=== PATIENT | female | born 1950 | race Caucasian/White ===

== ENCOUNTER 2019-07-04 00:56 | Inpatient (IN) | payer MEDICARE, MEDICAID ==
[~2019-07-04] VITALS: Ht 147.3 cm; Wt 79.6 kg
--- NOTE | ~2019-07-04 | HEMODYNAMI ---
PATIENT:VALERIE CRAWFORD MEDICAL RECORD: [id number] : [birth year] LOCATION:[facility] D.2111 ADMISSION DATE: 07/04/19 Generatedon:07/06/201915:54 Patient name: VALERIE CRAWFORD Patient #: [id number] SSN: D OB: 1950 Date of study: 07/06/2019 Page: Of Hemodynamic Procedure Report Patient Data Patient Demographics Procedure consent was obtained First Name: VALERIE Gender: Female Last Name: YVETTE : 1950 Patient #: [id number] Age: 68 year(s) Race: Unknown Additional ID: [id number] Contact details Address: [address] [place] [address] State: [place] City: [place] Zip code: [address] Past Medical History Allergies: No known allergies Admission Admission Data Admission Date: 07/04/2019 Admission Time: 17:00 Arrival Date: 07/05/2019 Arrival Time: 0:00 Admit Source: Other Insurance Payor: Medicare Room #: D.2111 [facility] #: [id number] Height (in.): 58 BSA: 1.79 (m2) Height (cm.): 147.32 BMI: 40.36 (kg/m2) Weight (lbs.): 193.1 Weight (kg.): 87.59 Lab Results Lab Result Date: 07/05/2019 Lab Result Time: 0:00 Biochemistry Name Units Result Min Max BUN mg/dl 21 --(----)-* 7 18 CK-MB ng/ml 3 --(---*)-- 0 3.6 Creatinine mg/dl 0.6 --(*---)-- 0.6 1.3 eGFR ml/min 90 --(*---)-- 90 120 NONAFRICAN Troponin l ng/ml 0.445 --(----)-* 0 0.06 CBC Name Units Result Min Max Hematocrit % 38 *-(----)-- 42 54 Hemoglobin g/dl 13.1 -*(----)-- 13.5 17.5 Procedure Procedure Types Cath Procedure Peripheral Cath Diagnostic Procedure PICC PICC Line Placement Procedure Description Procedure Date Procedure Date: 07/06/2019 Procedure Start Time: 15:34 Procedure End Time: 15:53 Procedure Staff Name Function Yash Kaur MD Performing Physician DARRELL ONEAL RT Imaging Aide Jean Hanks RT Scrub Suzanne Hathaway RN Nurse Procedure Data Cath Procedure Fluoroscopy Diagnostic fluoroscopy Total fluoroscopy Time: 2.5 time: 2.5 min min Diagnostic fluoroscopy Total fluoroscopy dose: 16 dose: 16 mGy mGy Hemodynamics Rest BSA: 1.79 (m2) O2 Consumption: Estimated: 243.44 (ml/min) O2 Consumption indexed : Estimated:136 (ml/min/m) Pre Cath Intra NCS Post Cath Procedure Log Time Note 15:04:27 Patient Height : 58 inches 15:04:27 Patient Weight : 193.1 lbs 15:05:09 Jean Hanks RT (R) (CV) sent for patient. Start room use. 15:05:11 Use device set IR Diagnostic 15:05:13 Bag Decanter (2002S) opened to sterile field. 15:05:13 Sterile Angiographic Pack opened to sterile field. 15:05:14 Tegaderm 4 x 4 (1626W) opened to sterile field. 15:14:11 Time tracking: Regular hours (M-F 7:00 - 5:00) 15:14:32 Patient received from Med II to IR Alert and oriented. Tansferred to table in Supine position. 15:18:37 Signed procedure consent form obtained from patient. 15:18:40 Correct patient and procedure confirmed by team. 15:18:44 - 15:18:51 H&P Date Dictated: 07/06/2019 Within 30 days and on chart.. 15:18:53 Pre-procedure instructions explained to patient. 15:18:54 Pre-op teaching completed and patient verbalized understanding. 15:18:56 Family in patients room. 15:19:05 Patient allergic to No known allergies 15:28:23 - 15:33:03 Physician arrived 15:33:04 --------ALL STOP TIME OUT------ 15:33:05 Final Timeout: patient, procedure, and site verified with staff and physician. All members of the team are in agreement. 15:34:44 Procedure started. 15:34:45 Full Disclosure recording started 15:40:40 GLIDE CATHETER 5FR ANGLED 65cm (CG507) opened to sterile field. 15:47:03 PowerPICC 5Fr double lumen catheter opened to sterile field. 15:47:52 Procedure ended.(Physican Out) 15:48:34 Fluoroscopy time 02.50 minutes. 15:49:32 Fluoroscopy dose: 16 mGy 15:49:32 Flurop Dose total: 16 15:49:40 Insertion/operative site no bleeding no hematoma. 15:52:27 Post procedure instruction explained to patient.Patient verbalizes understanding. 15:52:32 Procedure and supply charges have been captured, reviewed, submitted an d are correct. 15:53:54 Patient transfered to [facility] with Bed. 15:53:57 Procedure ended. 15:53:57 Full Disclosure recording stopped Device Usage Item Name Manufacture Quantity Catalog Hospital Part Current Minimal Lot# / Number Charge Number Stock Stock Serial# Code Bag Decanter Microtek 1 [id number] [id number] 5 () Medical Inc. Sterile Cardinal 1 [id number] 007770 5 Angiographic Health Pack Tegaderm 4 x 3M 1 1626W 774363 013716 588458 5 4 (1626W) GLIDE Terumo 1 CG507 408692 724060 5 CATHETER 5FR ANGLED 65cm (CG507) PowerPICC Bard 1 [id number] 328497 661724 091271 5 5Fr double lumen catheter Signature Audit Oneco Stage Time Signature Unsigned Intra-Procedure 07/06/2019 DARRELL ONEAL RT 3:54:17 PM (R) [facility] [address] [place] [address]
--- NOTE | ~2019-07-04 | EC ---
PATIENT:VALERIE CRAWFORD DATE OF SERVICE: 07/04/19 SEX: F MEDICAL RECORD: [id number] DATE OF : [birth year] LOCATION:[facility] D230 AGE OF PATIENT: 68 ADMISSION DATE: 07/04/19 REFERRING PHYSICIAN: INTERPRETING PHYSICIAN: MANUEL ESTRADA MD ECHOCARDIOGRAM REPORT ECHO CHARGES 5 ECHO LIMITED Date: 07/20/19 CLINICAL DIAGNOSIS: REASSESS EF ECHOCARDIOGRAPHIC MEASUREMENTS (adult normal given) AC root (d.<3.7cm) 3.0 cm LV Septum d (<1.2 cm> 0.7 cm Valve Excursion 1.3 cm LV Septum (systole) 0.9 cm Left Atria (s.<4.0cm> 4.6 cm LVPW d(<1.2cm) 1.4 cm RV (d.<2.3cm) 2.2 cm LVPW (sytole) 1.6 cm LV diastole(<5.6CM) 5.6 cm MV E-F(>70mm/sec) cm LV systole 4.6 cm LVOT Diameter 1.8 cm MV exc.(>10mm) cm Est.ejection fraction (50-75%) % DOPPLER: LVIT cm/sec A 67 cm/sec E cm/sec LA cm/sec RVSP 13 mmHg LVOT 150 cm/sec AOP1/2T m/s Asc. Ao 153 cm/sec RVOT 96 cm/sec RA cm/sec PA 92 cm/sec AV Gradient Peak 9.3 mmHg AV Mean 5.4 mmHg AV Area 2.6 cm MV Gradient Peak 10.2 mmHg MV Mean 4.7 mmHg MV Area cm COMMENTS: Nib Assembler: 2 AYAN GARCIA Project Intern: 1 Dr. Estrada TAPE# PACS Pericardial Effusion N DATE OF SERVICE: LIMITED ECHOCARDIOGRAM FOR EJECTION FRACTION Left ventricular chamber size is within normal limits. Left ventricular systolic function is normal at 55%. TRANSINT:[id number] Voice Confirmation ID: [id number] DOCUMENT ID: [id number] ECHOCARDIOGRAM REPORT [id number] YVETTEMANUEL FIERRO MD CC: [id number] DICTATION DATE: 07/21/19 0956 GAS ENGINE OPERATOR GENERATORS: 07/21/19 1048 ADM IN [place] [address] [place] [address]
--- NOTE | ~2019-07-04 | HEMODYNAMI ---
PATIENT:VALERIE CRAWFORD MEDICAL RECORD: [id number] : [birth year] LOCATION:[facility] D.2111 [facility]# [id number] ADMISSION DATE: 07/04/19 Generatedon:07/05/201914:01 Patient name: VALERIE CRAWFORD Patient #: [id number] SSN: D OB: 1950 Date of study: 07/05/2019 Page: Of Hemodynamic Procedure Report Patient Data Patient Demographics Procedure consent was obtained First Name: VALERIE Gender: Female Last Name: YVETTE : 1950 Patient #: [id number] Age: 68 year(s) Race: Unknown Additional ID: [id number] Contact details Address: [address] [place] [address] State: [place] City: [place] Zip code: [address] Past Medical History Allergies: No known allergies Admission Admission Data Admission Date: 07/04/2019 Admission Time: 17:00 Arrival Date: 07/05/2019 Arrival Time: 0:00 Admit Source: Other Insurance Payor: Medicare Room #: D.2111 [facility] #: [id number] Height (in.): 58 BSA: 1.79 (m2) Height (cm.): 147.32 BMI: 40.36 (kg/m2) Weight (lbs.): 193.1 Weight (kg.): 87.59 Lab Results Lab Result Date: 07/05/2019 Lab Result Time: 0:00 Biochemistry Name Units Result Min Max BUN mg/dl 21 --(----)-* 7 18 CK-MB ng/ml 3 --(---*)-- 0 3.6 Creatinine mg/dl 0.6 --(*---)-- 0.6 1.3 eGFR ml/min 90 --(*---)-- 90 120 NONAFRICAN Troponin l ng/ml 0.445 --(----)-* 0 0.06 CBC Name Units Result Min Max Hematocrit % 38 *-(----)-- 42 54 Hemoglobin g/dl 13.1 -*(----)-- 13.5 17.5 Procedure Procedure Types Cath Procedure Diagnostic Procedure [facility] w/Coronaries Sedation Charges Moderate Sedation up to 30 minutes Procedure Description Procedure Date Procedure Date: 07/05/2019 Procedure Start Time: 13:35 Procedure End Time: 13:59 Procedure Staff Name Function Andre Yao MD Performing Physician Peggy Chavez RT Monitor Apryl Britton RT Scrub Handy Cameron RN Nurse Procedure Data Cath Procedure Fluoroscopy Diagnostic fluoroscopy Total fluoroscopy Time: 3.4 time: 3.4 min min Diagnostic fluoroscopy Total fluoroscopy dose: 523 dose: 523 mGy mGy Contrast Material Contrast Material Type Amount (ml) Isovue 370 53 Entry Location Entry Primary Successful Side Size Upsize Upsize Entry Closure Succes sful Closure Location (Fr) 1 (Fr) 2 (Fr) Remarks Device Remarks Femoral Right 5 Fr Exoseal artery Estimated blood loss: 5 ml Diagnostic catheters Device Type Used For End Catheter Placement MULTIPACK JL 4.0 5Fr Procedure catheter MULTIPACK 3DRC 5Fr Procedure catheter MULTIPACK Pigtail 5 Fr Procedure catheter Procedure Complications No complications Procedure Medications Medication Administration Route Dosage 0.9% NaCl I.V. 100 ml/hr Oxygen 11 l/min Heparin Flush Bag added to field 2 bags (1000units/500ml NS) Lidocaine 2% added to field 20 Versed I.V. 1 mg Fentanyl I.V. 50 mcg Fentanyl I.V. 50 mcg Versed I.V. 1 mg Hemodynamics Rest BSA: 1.79 (m2) HGB: 13.1 (g/dl) O2 Consumption: Estimated: 193.44 (ml/min) O2 Co nsumption indexed: Estimated:108.07 (ml/min/m) Heart Rate: 111 (bpm) Gradients Valve Time Site Site Mean SEP/DFP Peak To Heart Use 1 2 (mmHg) (sec/min) Peak Rate (mmHg) (bpm) Aortic 13:56 LV AO 108 Snapshots Pre Cath Intra NCS Post Cath Vital Signs Time Heart Resp SPO2 etCO2 NIBP (mmHg) Rhythm Pain Sedation Rate (ipm) (%) (mmHg) Status Level (bpm) 13:28:30 111 25 100 0 126/70(87) NSR 0 (11) 10(A) , No pain 13:32:35 111 26 100 0 120/75(100) NSR 0 (11) 10(A) , No pain 13:36:43 108 21 100 0 116/74(92) NSR 0 (11) 10(A) , No pain 13:40:49 108 25 100 0 121/70(99) NSR 0 (11) 10(A) , No pain 13:44:57 106 26 99 0 131/76(122) NSR 0 (11) 10(A) , No pain 13:49:09 108 26 99 0 141/75(108) NSR 0 (11) 10(A) , No pain 13:53:23 111 27 99 0 127/77(99) NSR 0 (11) 10(A) , No pain 13:57:27 104 27 99 0 111/64(92) NSR 0 (11) 10(A) , No pain Medications Time Medication Route Dose Verified Delivered Reason Notes Effe ctiveness by by 13:30:31 0.9% NaCl I.V. 100 Handy Handy Per ml/hr Nisha Cameron physician RN RN 13:31:03 Oxygen High 11 Handy Handy for low 02 flow l/min Lorigan Yolieigan sats NC RN RN 13:31:14 Heparin Flush added 2 Handy Handy used for Bag to bags Lorigan Lorigan procedure (1000units/500ml [facility] RN RN NS) 13:31:28 Lidocaine 2% added 20ml Handy Handy for local to vial Lorigan Lorigan anesthetic field RN RN 13:31:42 Versed I.V. 1 mg Handy Handy for Lorigan Lorigan sedation RN RN 13:31:49 Fentanyl I.V. 50 Handy Handy for mcg Lorigan Lorigan sedation RN RN 13:38:52 Fentanyl I.V. 50 Handy Handy for mcg Lorigan Lorigan sedation RN RN 13:38:59 Versed I.V. 1 mg Handy Handy for Lorigan Lorigan sedation RN soil sampler Log Time Note 12:51:18 Handy Cameron RN sent for patient. Start room use. 12:57:55 Diagnostic Cath Status : Urgent 12:58:11 Admit Source: Other 12:58:16 Procedure Status Urgent Heart Cath (IP). 12:58:26 Time tracking: Regular hours (M-F 7:00 - 5:00) 12:58:31 Plan of Care:Hemodynamics will remain stable., Cardiac rhythm will remain stable., Comfort level will be maintained., Respiratory function will remain adequate., Patient/ family verbilizes understanding of procedure., Procedure tolerated without complication., Recovers from procedure without complications.. 12:58:51 H&P Date Dictated: 07/04/2019 Within 30 days and on chart.. 12:58:52 Pre-procedure instructions explained to patient. 12:58:52 Pre-op teaching completed and patient verbalized understanding. 12:58:55 Patient NPO since Midnight. 12:59:52 Lab Result : BUN 21 mg/dl 12:59:52 Lab Result : Creatinine 0.6 mg/dl 12:59:52 Lab Result : CK-MB 3 ng/ml 12:59:52 Lab Result : eGFR NONAFRICAN 90 ml/min 12:59:52 Lab Result : Troponin l 0.445 ng/ml 12:59:52 Lab Result : Hemoglobin 13.1 g/dl 12:59:52 Lab Result : Hematocrit 38 % 12:59:56 Lab results completed and on chart. 12:59:59 Stress Test: no; N/A ? 13:00:19 Arrival Date: 07/05/2019 12:00:00 AM 13:00:24 Insurance Payor : Medicare 13:00:40 Patient Height : 58 inches 13:03:47 Patient Weight : 193.1 lbs 13:05:45 Patient received from Med II to CCL 2 Alert and oriented. Tansferred to table in Supine position. 13:05:51 Signed procedure consent form obtained from patient. 13:05:52 Warm blankets applied, and shae hugger turned on for patient comfort. 13:05:52 Correct patient and procedure confirmed by team. 13:05:53 ECG and BP/O2 sat monitors applied to patient. 13:06:12 Risk of Mortality: 1.0 13:06:16 Risk of blood transfusion: 4.9 13:06:19 Risk of HALIMA: 4.0 13:06:21 Alarms reviewed by R. N. 13:06:22 Sharps counted by scrub and verified by R.N. 13:10:28 Patient allergic to No known allergies 13:10:43 Family unavailable. 13:10:46 Is the patient allergic to Iodine/contrast media? No. 13:10:47 Was the patient premedicated? Yes 13:10:49 Is patient on blood thinner?No 13:10:51 Patient diabetic? No. 13:10:53 If diabetic: On Metformin? N/A 13:10:57 Patient not . Patient is over age 55. 13:11:00 ----Pre-sedation anethsthesia assessment.---- 13:11:03 Previous problem with sedation/anesthesia? No ? 13:11:09 Snore? Yes 13:11:10 Sleep apnea? Yes 13:11:12 Deviated septum? No 13:11:13 Opens mouth fully? Yes 13:11:14 Sticks out tongue? Yes 13:11:17 Airway obstruction? Yes COPD 13:11:22 Dentures? Yes IN TIGHT 13:27:31 Vital chart was started 13:27:50 Baseline sample Acquired. 13:27:53 Rhythm: sinus rhythm 13:27:55 Full Disclosure recording started 13:28:03 Patient pain scale 0/10 ?. 13:28:10 IV patent on arrival in left antecubital with 0.9% NaCl at [facility]. 13:28:13 Pre procedure: right dorsailis pedis pulse 2+ Normal; easily identifiable; not easily obliterated 13:28:17 Right groin area was prepped with chlora-prep and draped in sterile fashion 13:28:23 Use device set Femoral Dx 13:28:25 ACIST Syringe (21189) opened to sterile field. 13:28:26 Bag Decanter (2002) opened to sterile field. 13:28:26 Medline Cath Pack ([id number]) opened to sterile field. 13:28:27 ACIST Hand Control (67072) opened to sterile field. 13:28:28 ACIST Manifold (76646) opened to sterile field. 13:28:29 DIAGNOSTIC Multipack 5Fr catheter set (NC0970) opened to sterile field. 13:28:30 SHEATH 5FR [place] (IKB706) opened to sterile field. 13:28:31 ERMELINDAALD Guide Wire (548-450) opened to sterile field. 13:30:31 0.9% NaCl 100 ml/hr I.V. was administered by Handy Cameron RN; Per physician; Verbal order read back and verified. 13:30:55 --------ALL STOP TIME OUT------ 13:30:56 Final Timeout: patient, procedure, and site verified with staff and physician. All members of the team are in agreement. 13:30:57 Right groin site verified by team. 13:31:01 Fire Safety Assessment: A--An alcohol-based skin anteseptic being used preoperatively., C--Open oxygen or nitrous oxide is being used., D--An ESU, laser, or fiber-optic light is being used. 13:31:03 Oxygen 11 l/min High flow NC was administered by Handy Cameron RN; for low 02 sats; Verbal order read back and verified. 13:31:04 Physical assessment completed. ASA score P 2 - A patient with mild systemic disease as per Andre Yao MD. 13:31:07 1) 90+ Normal kidney functon but urine findings or structural abnormalities or genetic trait point to kidney disease. 13:31:10 Maximum allowable contrast dose (3.7 X eGFR X 0.75)250 ml. 13:31:14 Heparin Flush Bag (1000units/500ml NS) 2 bags added to field was administered by Handy Cameron RN; used for procedure; Verbal order read back and verified. 13:31:15 Sedation plan: IV Moderate Sedation Medication:Versed, Fentanyl 13:31:28 Lidocaine 2% 20ml vial added to field was administered by Handy Cameron RN; for local anesthetic; Verbal order read back and verified. 13:31:42 Versed 1 mg I.V. was administered by Handy Cameron RN; for sedation; Verbal order read back and verified. 13:31:49 Fentanyl 50 mcg I.V. was administered by Handy Cameron RN; for sedation; Verbal order read back and verified. 13:34:41 Procedure started. 13:35:31 Local anesthetic to right femoral artery with Lidocaine 2% by Andre Yao MD.INITIAL ACCESS ONLY 13:38:52 Fentanyl 50 mcg I.V. was administered by Handy Cameron RN; for sedation; Verbal order read back and verified. 13:38:59 Versed 1 mg I.V. was administered by Handy Cameron RN; for sedation; Verbal order read back and verified. 13:41:59 A 5 Fr sheath was inserted into the Right Femoral artery 13:42:12 A MULTIPACK JL 4.0 5Fr catheter was advanced over the wire and used for Procedure. 13:42:48 LCA angiography performed. 13:44:52 Catheter exchanged over wire. 13:45:50 A MULTIPACK 3DRC 5Fr catheter was advanced over the wire and used for Procedure. 13:46:48 RCA angiography performed. 13:46:49 ACCDominant side:Co-Dominant 13:46:51 Catheter exchanged over wire. 13:46:56 A MULTIPACK Pigtail 5 Fr catheter was advanced over the wire and used for Procedure. 13:48:13 LV gram done using PAUL 13:48:14 LV hemodynamics recorded. 13:48:17 Injector settings: Ml/sec: 5, Volume: 15, 13:48:22 EF : 60 % 13:56:41 Catheter removed. 13:56:45 EXOSEAL 5Fr (EX500) opened to sterile field. 13:57:07 Sheath removed intact; hemostasis achieved with Exoseal to the Right Femoral artery. 13:57:27 Fluoroscopy time 03.40 minutes. 13:57:30 Fluoroscopy dose: 523 mGy 13:57:30 Flurop Dose total: 523 13:57:35 Dose Area Product 55103 mGy/cm. 13:57:48 Procedure ended.(Physican Out) 13:57:59 Contrast amount:Isovue 370 53ml. 13:58:02 Maximum allowable dose exceeded? No. 13:58:17 Sharps counted by scrub and verified by R.N. 13:58:31 Post-op/insertion site Right Femoral artery dressed using a 4 x 4 and Tegaderm. 13:58:36 Post right femoral artery:stable, soft, clean and dry 13:58:38 Post Procedure Pulses reassessed and unchanged 13:58:41 Post procedure: right dorsailis pedis pulse 2+ Normal; easily identifiable; not easily obliterated. 13:58:44 Post-procedure physical assessment completed. ASA score P 2 - A patient with mild systemic disease as per Andre Yao MD. 13:58:47 Post procedure rhythm: unchanged. 13:58:50 Estimated blood loss: 5 ml 13:58:52 Post procedure instruction explained to patient.Patient verbalizes understanding. 13:58:52 Patient needs reinforcement of post procedure teaching. 13:59:16 Procedure type changed to Cath procedure, Diagnostic procedure, LHC, [facility] w/Coronaries, Sedation Charges, Moderate Sedation up to 30 minutes 13:59:34 Procedure and supply charges have been captured, reviewed, submitted and are correct. 13:59:38 Procedure Complication : No complications 13:59:44 [facility] Findings: mild to moderate CAD (<70%) 13:59:46 Operative report dictated upon procedure completion. 13:59:46 See physician's report for complete and final results. 13:59:48 Report given to [facility]. 13:59:51 Patient transfered to [facility] with Bed. 13:59:54 Procedure ended. 13:59:54 Full Disclosure recording stopped 14:00:12 End room use (Document Last) 14:00:22 End room use (Document Last) 14:00:44 End room use (Document Last) 14:01:07 Vital chart was stopped Device Usage Item Name Manufacture Quantity Catalog Hospital Part Current Minimal L ot# / Number Charge Number Stock Stock Serial# Code ACIST Acist 1 35249 013162 545298 360831 20 Syringe Medical (26640) Systems Inc Bag Microtek 1 2001S 423077 22093 812567 5 Decanter Medical Inc. () Medline Medline 1 [id number] 389405 35697 923677 5 Cath Pack ([id number]) ACIST Hand Acist 1 30340 297553 330471 133579 5 Control Medical (66158) Systems Inc ACIST Acist 1 18193 266530 963265 630082 5 Manifold Medical (01410) Systems Inc DIAGNOSTIC Cardinal 1 RF5900 034599 82335 164910 30 Multipack Health 5Fr catheter set (MH5709) SHEATH 5FR Terumo 1 HLA384 050378 218716 854590 5 [place] (HNP812) EMERALD Cardinal 1 502-455 078535 949032 222673 5 Guide Wire Health (502-021) MULTIPACK Cardinal 1 190884 5 JL 4.0 5Fr Health catheter MULTIPACK Cardinal 1 412552 5 3DRC 5Fr Health catheter MULTIPACK Cardinal 1 311430 5 Pigtail 5 Health Fr catheter EXOSEAL 5Fr Cardinal 1 EX500 699503 533509 707055 10 (EX500) Health Signature Audit [place] Stage Time Signature Unsigned Intra-Procedure 07/05/2019 Pgegy Chavez 2:00:22 PM RT(R) Intra-Procedure 07/05/2019 Handy 2:00:44 PM Lorigan RN Intra-Procedure 07/05/2019 Andre Yao MD 2:01:05 PM Signatures Performing Physician : Signature : Andre Yao MD Date : Time : Monitor : Pgegy Chavez Signature : RT Date : Time : Nurse : Handy Lorigan Signature : RN Date : Time : [address] [place] [address]
[2019-07-04 01:38] LABS: BASOPHILS 0.1 % (0-2); HEMATOCRIT 37.8 % (36.0-48.0); IMMATURE GRANULOCYTES 0.8 % (0-5); LYMPHOCYTES 13.4 % (15-50); MCH 26.4 pg (26.0-34.0); MCHC 29.1 g/dL (31.0-37.0); MCV 90.6 fL (80.0-100.0); MEAN PLATELET VOLUME 10.5 fL (7.4-10.4); MONOCYTES 4.6 % (2-11); NEUTROPHILS 80.1 % (40-80); PLATELET COUNT 215 10x3/uL (130-400); RBC 4.17 10x6/uL (4.00-5.40); RDW 18.4 % (11.5-14.5)
[2019-07-04 01:42] LABS: APTT 22.5 SECONDS (22.8-39.4); INR 0.94 (0.85-1.17); PROTIME 12.5 SECONDS (11.6-15.0)
[2019-07-04 02:04] LABS: ALBUMIN 3.3 g/dL (3.4-5.0); ALKALINE PHOSPHATASE 68 U/L (30-120); ALT (SGPT) 25 U/L (10-68); BILIRUBIN - TOTAL 0.69 mg/dL (0.2-1.3); CALC OSMOLALITY 286 mosm/kg (275-300); CALCIUM 9.6 mg/dL (8.5-10.1); CHLORIDE - SERUM 101 mmol/L (98-107); CKMB 2.4 U/L (0.0-3.6); CREATINE KINASE 83 UL (21-215); CREATININE - SERUM 0.7 mg/dL (0.6-1.3); GLUCOSE 122 mg/dL (74-106); POTASSIUM - SERUM 4.4 mmol/L (3.5-5.1); PRO BNP 265 pg/mL (0-125); PROTEIN - SERUM 6.7 g/dL (6.4-8.2); SODIUM 142 mmol/L (136-145); UREA NITROGEN 20 mg/dL (7-18); eGFR NON AFRICAN AMERICAN 88 mL/min (90-120)
[2019-07-04 02:13] LABS: CARBON DIOXIDE 40.6 mmol/L (21.0-32.0)
[2019-07-04 02:14] LABS: TROPONIN-I 0.133 ng/mL (0.000-0.060)
[2019-07-04 03:26] LABS: CKMB 2.7 U/L (0.0-3.6); CREATINE KINASE 86 UL (21-215)
[2019-07-04 03:32] LABS: TROPONIN-I 0.248 ng/mL (0.000-0.060)
[2019-07-04 03:43] VITALS: BP 145/65
[2019-07-04 04:09] VITALS: BP 145/65; BMI 40.3
[2019-07-04 08:03] VITALS: BP 175/98
[2019-07-04 08:52] LABS: CREATINE KINASE 71 UL (21-215)
[2019-07-04 08:58] LABS: TROPONIN-I 0.445 ng/mL (0.000-0.060)
[2019-07-04 11:31] LABS: BASOPHILS 0.1 % (0-2); EOSINOPHILS 0.8 % (0-7); HEMATOCRIT 38.5 % (36.0-48.0); HEMOGLOBIN 10.8 g/dL (12-16); IMMATURE GRANULOCYTES 0.8 % (0-5); LYMPHOCYTES 11.7 % (15-50); MCH 25.8 pg (26.0-34.0); MCHC 28.1 g/dL (31.0-37.0); MCV 92.1 fL (80.0-100.0); MEAN PLATELET VOLUME 11.3 fL (7.4-10.4); MONOCYTES 4.8 % (2-11); NEUTROPHILS 81.8 % (40-80); PLATELET COUNT 200 10x3/uL (130-400); RBC 4.18 10x6/uL (4.00-5.40); WBC 10.9 10x3/uL (4.8-10.8)
[2019-07-04 11:42] LABS: ALT (SGPT) 32 U/L (10-68); CALC OSMOLALITY 287 mosm/kg (275-300); CALCIUM 9.6 mg/dL (8.5-10.1); CARBON DIOXIDE 36.5 mmol/L (21.0-32.0); CHLORIDE - SERUM 100 mmol/L (98-107); CHOLESTEROL, TOTAL 193 mg/dL (0-200); CREATININE - SERUM 0.6 mg/dL (0.6-1.3); GLUCOSE 129 mg/dL (74-106); HDL CHOLESTEROL 96 mg/dL (32-96); LDL CHOLESTEROL 62 mg/dL (0-100); LDL-HDL RATIO 0.6 ratio (1.5-3.5); POTASSIUM - SERUM 4.6 mmol/L (3.5-5.1); SODIUM 142 mmol/L (136-145); TRIGLYCERIDE 175 mg/dL (30-200); UREA NITROGEN 21 mg/dL (7-18); eGFR NON AFRICAN AMERICAN > 90 mL/min (90-120)
[2019-07-04 12:22] VITALS: BP 152/81
[2019-07-04 15:55] VITALS: BP 129/67
[2019-07-04 16:21] LABS: CKMB 3.1 U/L (0.0-3.6); CREATINE KINASE 63 UL (21-215)
[2019-07-04 20:30] VITALS: BP 144/72
[2019-07-05 00:30] VITALS: BP 154/87
[2019-07-05 04:30] VITALS: BP 140/75
[2019-07-05 06:31] LABS: BASOPHILS 0.1 % (0-2); EOSINOPHILS 0 % (0-7); HEMATOCRIT 38.8 % (36.0-48.0); HEMOGLOBIN 11.5 g/dL (12-16); IMMATURE GRANULOCYTES 0.4 % (0-5); LYMPHOCYTES 5.2 % (15-50); MCH 26.2 pg (26.0-34.0); MCHC 29.6 g/dL (31.0-37.0); MEAN PLATELET VOLUME 10.5 fL (7.4-10.4); MONOCYTES 2.4 % (2-11); NEUTROPHILS 91.9 % (40-80); RBC 4.39 10x6/uL (4.00-5.40); RDW 18.7 % (11.5-14.5)
[2019-07-05 06:45] LABS: MCV 88.4 fL (80.0-100.0); PLATELET COUNT 264 10x3/uL (130-400)
[2019-07-05 08:38] VITALS: BP 125/77
[2019-07-05 09:16] LABS: CARBON DIOXIDE 35.8 mmol/L (21.0-32.0); CHLORIDE - SERUM 98 mmol/L (98-107); SODIUM 143 mmol/L (136-145); UREA NITROGEN 23 mg/dL (7-18)
[2019-07-05 09:23] LABS: CALC OSMOLALITY 294 mosm/kg (275-300); CREATININE - SERUM 0.8 mg/dL (0.6-1.3); GLUCOSE 204 mg/dL (74-106); POTASSIUM - SERUM 3.8 mmol/L (3.5-5.1); eGFR NON AFRICAN AMERICAN 75 mL/min (90-120)
[2019-07-05 11:48] VITALS: BP 131/65
[2019-07-05 13:58] VITALS: BMI 40.2
[2019-07-05 17:20] VITALS: BP 152/63
[2019-07-05 20:00] VITALS: BP 157/67
[2019-07-06] VITALS: BP 149/53
[2019-07-06 04:00] VITALS: BP 142/62
[2019-07-06 05:51] LABS: BASOPHILS 0 % (0-2); EOSINOPHILS 0.1 % (0-7); HEMATOCRIT 34.5 % (36.0-48.0); HEMOGLOBIN 10.1 g/dL (12-16); IMMATURE GRANULOCYTES 0.5 % (0-5); LYMPHOCYTES 5.8 % (15-50); MCH 25.7 pg (26.0-34.0); MCHC 29.3 g/dL (31.0-37.0); MCV 87.8 fL (80.0-100.0); MEAN PLATELET VOLUME 10.1 fL (7.4-10.4); MONOCYTES 4.6 % (2-11); RBC 3.93 10x6/uL (4.00-5.40); RDW 18.7 % (11.5-14.5)
[2019-07-06 06:04] LABS: PLATELET COUNT 205 10x3/uL (130-400); WBC 8.8 10x3/uL (4.8-10.8)
[2019-07-06 06:05] LABS: CALCIUM 8.9 mg/dL (8.5-10.1); CHLORIDE - SERUM 102 mmol/L (98-107); CREATININE - SERUM 0.8 mg/dL (0.6-1.3); MAGNESIUM - SERUM 1.9 mg/dL (1.8-2.4); SODIUM 142 mmol/L (136-145); UREA NITROGEN 21 mg/dL (7-18); eGFR NON AFRICAN AMERICAN 75 mL/min (90-120)
[2019-07-06 06:13] LABS: CALC OSMOLALITY 288 mosm/kg (275-300); GLUCOSE 151 mg/dL (74-106); POTASSIUM - SERUM 3.2 mmol/L (3.5-5.1)
[2019-07-06 09:08] VITALS: BP 162/69
[2019-07-06 17:33] VITALS: BP 185/74
[2019-07-06 20:00] VITALS: BP 156/88
[2019-07-07] VITALS: BP 179/68
[2019-07-07 04:00] VITALS: BP 142/87
[2019-07-07 06:46] LABS: BASOPHILS 0 % (0-2); EOSINOPHILS 0 % (0-7); HEMATOCRIT 36.8 % (36.0-48.0); HEMOGLOBIN 10.9 g/dL (12-16); IMMATURE GRANULOCYTES 0.9 % (0-5); LYMPHOCYTES 4.8 % (15-50); MCH 26.3 pg (26.0-34.0); MCHC 29.6 g/dL (31.0-37.0); MCV 88.7 fL (80.0-100.0); MEAN PLATELET VOLUME 11.1 fL (7.4-10.4); MONOCYTES 2.2 % (2-11); NEUTROPHILS 92.1 % (40-80); PLATELET COUNT 209 10x3/uL (130-400); RBC 4.15 10x6/uL (4.00-5.40); RDW 18.2 % (11.5-14.5); WBC 8.2 10x3/uL (4.8-10.8)
[2019-07-07 07:00] LABS: ANION GAP 11.8 mmol/L (8-16); CALCIUM 9.7 mg/dL (8.5-10.1); CREATININE - SERUM 0.9 mg/dL (0.6-1.3); MAGNESIUM - SERUM 1.7 mg/dL (1.8-2.4); POTASSIUM - SERUM 3.8 mmol/L (3.5-5.1)
[2019-07-07 09:24] VITALS: BP 174/72
[2019-07-07 09:31] VITALS: BP 174/72
[2019-07-07 10:10] LABS: IMMUNOGLOBULIN A 191 mg/dL (87-352); IMMUNOGLOBULIN G 543 mg/dL (700-1600)
[2019-07-07] MEDS ORDERED: CILOSTAZOL50 MG PO (19:27)
[2019-07-07] MEDS ORDERED: XALATAN 0.0052.5 ML EACH EYE (19:28)
[2019-07-07] MEDS ORDERED: OMEPRAZOLE40 MG PO (19:29)
[2019-07-07] MEDS ORDERED: WELLBUTRIN XL150 M1 PO (19:29)
[2019-07-07] MEDS ORDERED: SYNTHROID25 MCG PO (19:31)
[2019-07-07] MEDS ORDERED: SYMBICORT 16010.2 GM INH (19:48)
[2019-07-07] MEDS ORDERED: LIPITOR40 MG PO (19:49)
[2019-07-07] MEDS ORDERED: ZYLOPRIM300 MG PO (19:49)
[2019-07-07] MEDS ORDERED: LASIX40 MG PO (19:49)
[2019-07-07] MEDS ORDERED: ISOSORBIDE MONO30 M1 PO (19:50)
[2019-07-07] MEDS ORDERED: HYDROCODON-ACE1 EA10 PO (19:50)
[2019-07-07] MEDS ORDERED: LOPRESSOR25 MG PO (19:51)
[2019-07-07] MEDS ORDERED: IPRAT-ALBUT 0.5-3 ML UPD (19:51)
[2019-07-07] MEDS ORDERED: LYRICA150 MG PO (19:52)
[2019-07-07] MEDS ORDERED: PLAVIX75 MG PO (19:53)
[2019-07-07] MEDS ORDERED: ALDACTONE25 MG PO (19:53)
[2019-07-07] MEDS ORDERED: VALIUM5 MG PO (19:54)
[2019-07-07 20:00] VITALS: BP 146/61
[2019-07-08] VITALS (7 sets, daily range): BP systolic 120–170; BP diastolic 59–76; Ht 147.3 cm; Wt 79.6 kg
[2019-07-08 06:49] LABS: BASOPHILS 0.1 % (0-2); EOSINOPHILS 0 % (0-7); HEMATOCRIT 35.5 % (36.0-48.0); HEMOGLOBIN 10.7 g/dL (12-16); LYMPHOCYTES 3.1 % (15-50); MCH 26.4 pg (26.0-34.0); MCHC 30.1 g/dL (31.0-37.0); MCV 87.7 fL (80.0-100.0); MEAN PLATELET VOLUME 9.9 fL (7.4-10.4); MONOCYTES 2.2 % (2-11); NEUTROPHILS 92.6 % (40-80); PLATELET COUNT 245 10x3/uL (130-400); RBC 4.05 10x6/uL (4.00-5.40); RDW 18.1 % (11.5-14.5)
[2019-07-08 06:54] LABS: WBC 12.6 10x3/uL (4.8-10.8)
[2019-07-08 06:59] LABS: ANION GAP 13.9 mmol/L (8-16); CALCIUM 9.2 mg/dL (8.5-10.1); CARBON DIOXIDE 32.6 mmol/L (21.0-32.0); MAGNESIUM - SERUM 1.7 mg/dL (1.8-2.4); POTASSIUM - SERUM 3.5 mmol/L (3.5-5.1)
[2019-07-08 07:04] LABS: CREATININE - SERUM 1.2 mg/dL (0.6-1.3)
[2019-07-08 19:43] LABS: APTT 25.6 SECONDS (22.8-39.4); INR 1.04 (0.85-1.17); PROTIME 13.5 SECONDS (11.6-15.0)
[2019-07-09 01:18] VITALS: BP 157/61
[2019-07-09 03:07] LABS: IMMUNOGLOBULIN E 35 IU/mL (6-495)
[2019-07-09 04:42] VITALS: BP 167/93
[2019-07-09 06:27] LABS: BASOPHILS 0.1 % (0-2); EOSINOPHILS 0 % (0-7); HEMATOCRIT 36.4 % (36.0-48.0); IMMATURE GRANULOCYTES 3.6 % (0-5); LYMPHOCYTES 4.4 % (15-50); MCHC 30.2 g/dL (31.0-37.0); MCV 86.1 fL (80.0-100.0); MEAN PLATELET VOLUME 10.1 fL (7.4-10.4); MONOCYTES 2.9 % (2-11); PLATELET COUNT 249 10x3/uL (130-400); RBC 4.23 10x6/uL (4.00-5.40); RDW 17.3 % (11.5-14.5); WBC 10.1 10x3/uL (4.8-10.8)
[2019-07-09 06:40] LABS: ANION GAP 5.3 mmol/L (8-16); CALCIUM 9.1 mg/dL (8.5-10.1); CARBON DIOXIDE 38.2 mmol/L (21.0-32.0); CREATININE - SERUM 0.9 mg/dL (0.6-1.3); MAGNESIUM - SERUM 1.9 mg/dL (1.8-2.4); POTASSIUM - SERUM 3.5 mmol/L (3.5-5.1)
[2019-07-09 08:00] VITALS: BP 155/86
[2019-07-09 12:00] VITALS: BP 134/75
[2019-07-09 16:00] VITALS: BP 167/84
[2019-07-09 20:30] VITALS: BP 157/61
[2019-07-10 00:30] VITALS: BP 167/79
[2019-07-10 04:30] VITALS: BP 142/63
[2019-07-10 05:16] LABS: HEMATOCRIT 38.6 % (36.0-48.0); HEMOGLOBIN 11.9 g/dL (12-16); MCH 26.4 pg (26.0-34.0); MCHC 30.8 g/dL (31.0-37.0); MCV 85.6 fL (80.0-100.0); MEAN PLATELET VOLUME 9.6 fL (7.4-10.4); PLATELET COUNT 323 10x3/uL (130-400); RBC 4.51 10x6/uL (4.00-5.40); RDW 17.2 % (11.5-14.5); WBC 20.8 10x3/uL (4.8-10.8)
[2019-07-10 05:17] LABS: EOSINOPHILS 1 % (0-7); LYMPHOCYTES 5 % (15-50); MONOCYTES 4 % (2-11); NEUTROPHILS 87 % (40-80); PLATELET ESTIMATE NORMAL
[2019-07-10 05:21] LABS: ANION GAP 9.4 mmol/L (8-16); CALCIUM 9.1 mg/dL (8.5-10.1); CARBON DIOXIDE 38.2 mmol/L (21.0-32.0); MAGNESIUM - SERUM 1.8 mg/dL (1.8-2.4); POTASSIUM - SERUM 3.6 mmol/L (3.5-5.1)
[2019-07-10 08:00] VITALS: BP 89/41
[2019-07-10 16:00] VITALS: BP 144/74
[2019-07-10 21:30] VITALS: BP 172/82
[2019-07-11 00:30] VITALS: BP 131/58
[2019-07-11 04:30] VITALS: BP 148/97
[2019-07-11 06:50] LABS: ANION GAP 9.9 mmol/L (8-16); CALCIUM 9.2 mg/dL (8.5-10.1); CARBON DIOXIDE 36.6 mmol/L (21.0-32.0); MAGNESIUM - SERUM 1.9 mg/dL (1.8-2.4); POTASSIUM - SERUM 3.5 mmol/L (3.5-5.1)
[2019-07-11 06:52] LABS: BASOPHILS 0.1 % (0-2); EOSINOPHILS 0 % (0-7); HEMATOCRIT 36.8 % (36.0-48.0); HEMOGLOBIN 11.3 g/dL (12-16); IMMATURE GRANULOCYTES 1.5 % (0-5); LYMPHOCYTES 2.2 % (15-50); MCH 26.3 pg (26.0-34.0); MCHC 30.7 g/dL (31.0-37.0); MCV 85.8 fL (80.0-100.0); MEAN PLATELET VOLUME 10.3 fL (7.4-10.4); MONOCYTES 2.8 % (2-11); NEUTROPHILS 93.4 % (40-80); PLATELET COUNT 297 10x3/uL (130-400); RBC 4.29 10x6/uL (4.00-5.40); RDW 17.3 % (11.5-14.5); WBC 18.4 10x3/uL (4.8-10.8)
[2019-07-11 08:00] VITALS: BP 112/56
[2019-07-11 16:00] VITALS: BP 183/71
[2019-07-11 20:30] VITALS: BP 153/72
[2019-07-12 00:30] VITALS: BP 112/86
[2019-07-12 04:30] VITALS: BP 148/61
[2019-07-12 05:33] LABS: CALC OSMOLALITY 288 mosm/kg (275-300); CARBON DIOXIDE 38.9 mmol/L (21.0-32.0); CHLORIDE - SERUM 96 mmol/L (98-107); CREATININE - SERUM 0.8 mg/dL (0.6-1.3); MAGNESIUM - SERUM 1.8 mg/dL (1.8-2.4); SODIUM 140 mmol/L (136-145); UREA NITROGEN 22 mg/dL (7-18); eGFR NON AFRICAN AMERICAN 75 mL/min (90-120)
[2019-07-12 05:35] LABS: GLUCOSE 218 mg/dL (74-106)
[2019-07-12 05:48] LABS: BASOPHILS 0.1 % (0-2); EOSINOPHILS 0 % (0-7); HEMOGLOBIN 11.6 g/dL (12-16); IMMATURE GRANULOCYTES 3.5 % (0-5); LYMPHOCYTES 1.8 % (15-50); MCH 26.6 pg (26.0-34.0); MCHC 31.4 g/dL (31.0-37.0); MCV 84.9 fL (80.0-100.0); MEAN PLATELET VOLUME 9.9 fL (7.4-10.4); NEUTROPHILS 87.6 % (40-80); PLATELET COUNT 323 10x3/uL (130-400); RBC 4.36 10x6/uL (4.00-5.40); RDW 17.2 % (11.5-14.5); WBC 17.9 10x3/uL (4.8-10.8)
[2019-07-12 10:26] VITALS: BP 148/80
[2019-07-12 14:55] VITALS: BP 151/76
[2019-07-12 20:36] VITALS: BP 143/95
[2019-07-13 00:28] VITALS: BP 163/87
[2019-07-13 05:48] LABS: CALC OSMOLALITY 277 mosm/kg (275-300); CARBON DIOXIDE 38.6 mmol/L (21.0-32.0); CHLORIDE - SERUM 96 mmol/L (98-107); CREATININE - SERUM 0.7 mg/dL (0.6-1.3); MAGNESIUM - SERUM 1.8 mg/dL (1.8-2.4); POTASSIUM - SERUM 3.4 mmol/L (3.5-5.1); SODIUM 137 mmol/L (136-145); UREA NITROGEN 17 mg/dL (7-18); eGFR NON AFRICAN AMERICAN 88 mL/min (90-120)
[2019-07-13 05:52] LABS: BASOPHILS 0.2 % (0-2); EOSINOPHILS 0.1 % (0-7); HEMATOCRIT 37.3 % (36.0-48.0); HEMOGLOBIN 11.4 g/dL (12-16); IMMATURE GRANULOCYTES 4.4 % (0-5); LYMPHOCYTES 3.4 % (15-50); MCH 26.5 pg (26.0-34.0); MCHC 30.6 g/dL (31.0-37.0); MCV 86.5 fL (80.0-100.0); MEAN PLATELET VOLUME 9.8 fL (7.4-10.4); MONOCYTES 5.5 % (2-11); NEUTROPHILS 86.4 % (40-80); PLATELET COUNT 274 10x3/uL (130-400); RBC 4.31 10x6/uL (4.00-5.40); RDW 17.3 % (11.5-14.5); WBC 17.2 10x3/uL (4.8-10.8)
[2019-07-13 05:54] LABS: GLUCOSE 133 mg/dL (74-106)
[2019-07-13 06:30] VITALS: BP 142/89
[2019-07-13 08:34] VITALS: BP 183/101
[2019-07-13 11:50] VITALS: BP 190/67
[2019-07-13 16:04] VITALS: BP 176/76
[2019-07-13 21:03] VITALS: BP 142/88
[2019-07-14 01:51] VITALS: BP 97/74
[2019-07-14 06:23] LABS: BASOPHILS 0.2 % (0-2); EOSINOPHILS 0.3 % (0-7); HEMATOCRIT 36.3 % (36.0-48.0); HEMOGLOBIN 11.1 g/dL (12-16); IMMATURE GRANULOCYTES 4.9 % (0-5); LYMPHOCYTES 6.5 % (15-50); MCH 26.5 pg (26.0-34.0); MCHC 30.6 g/dL (31.0-37.0); MCV 86.6 fL (80.0-100.0); MEAN PLATELET VOLUME 10.6 fL (7.4-10.4); MONOCYTES 5.7 % (2-11); NEUTROPHILS 82.4 % (40-80); PLATELET COUNT 272 10x3/uL (130-400); RBC 4.19 10x6/uL (4.00-5.40); RDW 17.5 % (11.5-14.5); WBC 14.5 10x3/uL (4.8-10.8)
[2019-07-14 06:34] VITALS: BP 110/51
[2019-07-14 06:47] LABS: CALC OSMOLALITY 281 mosm/kg (275-300); CALCIUM 8.7 mg/dL (8.5-10.1); CARBON DIOXIDE 39.4 mmol/L (21.0-32.0); CHLORIDE - SERUM 95 mmol/L (98-107); CREATININE - SERUM 0.8 mg/dL (0.6-1.3); GLUCOSE 170 mg/dL (74-106); MAGNESIUM - SERUM 1.7 mg/dL (1.8-2.4); SODIUM 138 mmol/L (136-145); UREA NITROGEN 17 mg/dL (7-18); eGFR NON AFRICAN AMERICAN 75 mL/min (90-120)
[2019-07-14 07:18] LABS: POTASSIUM - SERUM 2.9 mmol/L (3.5-5.1)
[2019-07-14 08:33] VITALS: BP 137/81
[2019-07-14 11:37] VITALS: BP 138/87
[2019-07-14 15:39] VITALS: BP 131/70
[2019-07-14 20:00] VITALS: BP 148/72
[2019-07-15] VITALS: BP 132/61
[2019-07-15 04:00] VITALS: BP 141/62
--- NOTE | 2019-07-15 10:28 | MORECARE ---
CASE MANAGEMENT DISCHARGE SUMMARY PATIENT: VALERIE CRAWFORD UNIT: [id number] ADM DATE: 07/04/19 AGE: 68 : [birth year] SEX: F ROOM/BED: D.2111 AUTHOR: NATIVIDAD,DOC PHYSICIAN: REFERRING PHYSICIAN: BALDEMAR MIDDLETON MD DATE OF SERVICE: 07/15/19 Discharge Plan Patient Name: VALERIE CRAWFORD Facility: [facility]:[place] : 1950 Planned Disposition: Anticipated Discharge Date: Discharge Date: Expected LOS: Initial Reviewer: [email or web address] Initial Review Date: 07/15/2019 Generated: 07/15/19 11:28 am Comments DCP- Discharge Planning Updated by [email or web address]: Annie Rivers on 07/15/19 9:[address] Patient Name: VALERIE CRAWFORD Admission Status: ER Accout number: [id number] Admission Date: 07-04-2019 : 1950 Admission Diagnosis: Attending: BALDEMAR MIDDLETON Current LOS: 11 Anticipated DC Date: Planned Disposition: Primary Insurance: [facility] [employer] Discharge Planning Comments: CM MET WITH PATIENT AFTER OBTAINING VERBAL CONSENT. PATIENT STATES WILL NEED IPRH OR SNF AT TIME OF DISCHARGE. SHE HAS 02 AND NEBS AT HOME. SHE SIGNED MAUREEN FOR [facility] I[facility]H, [facility] IF TOO LOW FUNCTION FOR IPRH, AND [facility] FOR DME AND TRILOGY. CM TO FOLLOW AND ASSIST NEEDED. Premium Card Cancellation Clerk: Annie Rivers DCPIA - Discharge Planning Initial Assessment Updated by [email or web address]: Annie Rivers on 07/15/19 10:25 am * Is the patient Alert and Oriented? Yes * Preadmission Environment Home with Family * ADLs Independent * Other Equipment 02, NEBS * Community resources currently utilized None * Please name any agencies selected above. [facility] * Additional services required to return to the preadmission environment? Yes * Can the patient safely return to the preadmission environment? No * Has this patient been hospitalized within the prior 30 days at any hospital? Yes External Providers External Provider: OTHER-OTHER Next Contact Date: Service Request Date: Service Type: Resolution: Reviewer: Comments: Coverage Notice Reviewer: [email or web address] - Annie Rivers Notice Issued Date-Time: 07/15/2019 10:22 Notice Type: Patient Choice Letter Notice Delivered To: Relationship to Patient: Operations Examiner Name: Delivery Method: HAND - Hand Delivered Nury Days: Prior Verbal Notification: Recipient Understood Notice: Yes Recipient Signature: Yes Med Rec Note Co-signed by Attending: Coverage Notice Comment: MAUREEN FOR [facility], [facility] [place] [facility] IF CANT GO TO [facility]. GERALDINE GAITAN FOR TRILOGY ETC. Patient Name: VALERIE CRAWFORD Page [phone] at 1028 All edits/amendments must be made on the electronic document DICTATION DATE: 07/15/19 1028 OUTPATIENT CASE MANAGER: DOMINIQUE 07/15/19 1028 RPT#: [id number] DC DATE: STATUS: ADM IN [facility] [address] [place] [address] END OF REPORT
--- NOTE | 2019-07-15 10:50 | MORECARE ---
CASE MANAGEMENT DISCHARGE SUMMARY PATIENT: VALERIE CRAWFORD UNIT: [id number] ADM DATE: 07/04/19 AGE: 68 : 49 SEX: F ROOM/BED: D.2111 AUTHOR: NATIVIDAD,DOC PHYSICIAN: REFERRING PHYSICIAN: BALDEMAR MIDDLETON MD DATE OF SERVICE: 07/15/19 Discharge Plan Patient Name: VALERIE CRAWFORD Facility: [facility]:[place] : 1950 Planned Disposition: Anticipated Discharge Date: Discharge Date: Expected LOS: Initial Reviewer: [id number] Initial Review Date: 07/15/2019 Generated: 07/15/19 11:49 am Comments DCP- Discharge Planning Updated by [email or web address]: Annie Rivers on 07/15/19 9:[address] Patient Name: VALERIE CRAWFORD Admission Status: ER Accout number: [id number] Admission Date: 07-04-2019 : 1950 Admission Diagnosis: Attending: BALDEMAR MIDDLETON Current LOS: 11 Anticipated DC Date: Planned Disposition: Primary Insurance: [facility] MEDICARE SOLUTIONS Discharge Planning Comments: CM MET WITH PATIENT AFTER OBTAINING VERBAL CONSENT. PATIENT STATES WILL NEED IPRH OR SNF AT TIME OF DISCHARGE. SHE HAS 02 AND NEBS AT HOME. SHE SIGNED MAUREEN FOR [facility] IPRH, [facility] IF TOO LOW FUNCTION FOR IPRH, AND [facility] FOR DME AND TRILOGY. CM TO FOLLOW AND ASSIST NEEDED. Software Security Consultant: Annie Rivers DCPIA - Discharge Planning Initial Assessment Updated by [id number]: Annie Rivers on 07/15/19 10:25 am * Is the patient Alert and Oriented? Yes * Preadmission Environment Home with Family * ADLs Independent * Other Equipment 02, NEBS * Community resources currently utilized None * Please name any agencies selected above. [facility] * Additional services required to return to the preadmission environment? Yes * Can the patient safely return to the preadmission environment? No * Has this patient been hospitalized within the prior 30 days at any hospital? Yes External Providers External Provider: [facility] [place] Next Contact Date: Service Request Date: Service Type: Resolution: Reviewer: Comments: [facility] Next Contact Date: Service Request Date: Service Type: Resolution: Reviewer: Comments: Coverage Notice Reviewer: [id number] - Annie Rivers Notice Issued Date-Time: 07/15/2019 10:22 Notice Type: Patient Choice Letter Notice Delivered To: Relationship to Patient: Epidemiology Internship Name: Delivery Method: HAND - Hand Delivered Nury Days: Prior Verbal Notification: Recipient Understood Notice: Yes Recipient Signature: Yes Med Rec Note Co-signed by Attending: Coverage Notice Comment: MAUREEN FOR [facility], [facility] AND REHAB IF CANT GO TO [facility]. DME [facility] FOR TRILOGY ETC. Last DP export: 07/15/19 9:28 a Patient Name: VALERIE CRAWFORD Page 41498 at 1050 All edits/amendments must be made on the electronic document DICTATION DATE: 07/15/19 1049 LEAF CONDITIONER HELPER: DOMINIQUE 07/15/19 1049 RPT#: [id number] DC DATE: STATUS: ADM IN [address] [place] [address] END OF REPORT
[2019-07-15 10:59] VITALS: BP 170/74
--- NOTE | 2019-07-15 11:11 | MORECARE ---
CASE MANAGEMENT DISCHARGE SUMMARY PATIENT: VALERIE CRAWFORD UNIT: [id number] ADM DATE: 07/04/19 AGE: 68 : 49 SEX: F ROOM/BED: D.2111 AUTHOR: NATIVIDAD,DOC PHYSICIAN: REFERRING PHYSICIAN: BALDEMAR MIDDLETON MD DATE OF SERVICE: 07/15/19 Discharge Plan Patient Name: VALERIE CRAWFORD Facility: [facility]:[place] : 1950 Planned Disposition: Anticipated Discharge Date: Discharge Date: Expected LOS: Initial Reviewer: [id number] Initial Review Date: 07/15/2019 Generated: 07/15/19 12:10 pm Comments DCP- Discharge Planning Updated by [email or web address]: Annie Rivers on 07/15/19 10:[address] Patient Name: VALERIE CRAWFORD Admission Status: ER Accout number: [id number] Admission Date: 07-04-2019 : 1950 Admission Diagnosis: Attending: BALDEMAR MIDDLETON Current LOS: 11 Anticipated DC Date: Planned Disposition: Primary Insurance: [facility] MEDICARE SOLUTIONS Discharge Planning Comments: CM MET WITH PATIENT AFTER OBTAINING VERBAL CONSENT. PATIENT STATES WILL NEED IPRH OR SNF AT TIME OF DISCHARGE. SHE HAS 02 AND NEBS AT HOME. SHE SIGNED MAUREEN FOR [facility] IPR[facility], [place] [facility] IF TOO LOW FUNCTION FOR IPRH, AND [facility] FOR DME AND TRILOGY. CM TO FOLLOW AND ASSIST NEEDED. Client Specialist: Annie Rivers Appended by Annie Rivers on 07/15/2019 11:06 ELECTRICAL SYSTEMS ENGINEER: REFERRAL FAXED TO [facility] FOR TRILOGY AND [place] FOR SNF. DCPIA - Discharge Planning Initial Assessment Updated by [email or web address]: Annie Rivers on 07/15/19 10:25 am * Is the patient Alert and Oriented? Yes * Preadmission Environment Home with Family * ADLs Independent * Other Equipment 02, NEBS * Community resources currently utilized None * Please name any agencies selected above. [facility] * Additional services required to return to the preadmission environment? Yes * Can the patient safely return to the preadmission environment? No * Has this patient been hospitalized within the prior 30 days at any hospital? Yes Coverage Notice Reviewer: [id number] - Annie Rivers Notice Issued Date-Time: 07/15/2019 10:22 Notice Type: Patient Choice Letter Notice Delivered To: Relationship to Patient: Physician General Internal Medicine Name: Delivery Method: HAND - Hand Delivered Nury Days: Prior Verbal Notification: Recipient Understood Notice: Yes Recipient Signature: Yes Med Rec Note Co-signed by Attending: Coverage Notice Comment: MAUREEN FOR [facility], [facility] IF CANT GO TO [facility]. DME [facility] FOR TRILOGY ETC. Last DP export: 07/15/19 9:50 a Patient Name: VALERIE CRAWFORD Page 10132 at 1111 All edits/amendments must be made on the electronic document DICTATION DATE: 07/15/19 111 FISHER: DOMINIQUE 07/15/19 1110 RPT#: [id number] DC DATE: STATUS: ADM IN [facility] [address] [place] [address] END OF REPORT
--- NOTE | 2019-07-15 13:35 | MORECARE ---
CASE MANAGEMENT DISCHARGE SUMMARY PATIENT: VALERIE CRAWFORD UNIT: [id number] ADM DATE: 07/04/19 AGE: 68 : 49 SEX: F ROOM/BED: D.2111 AUTHOR: NATIVIDAD,DOC PHYSICIAN: REFERRING PHYSICIAN: BALDEMAR MIDDLETON MD DATE OF SERVICE: 07/15/19 Discharge Plan Patient Name: VALERIE CRAWFORD Facility: [facility]:[place] : 1950 Planned Disposition: Anticipated Discharge Date: Discharge Date: Expected LOS: Initial Reviewer: [id number] Initial Review Date: 07/15/2019 Generated: 07/15/19 2:35 pm Comments DCP- Discharge Planning Updated by [id number]: Annie Rivers on 07/15/19 10:[address] Patient Name: VALERIE CRAWFORD Admission Status: ER Accout number: [id number] Admission Date: 07-04-2019 : 1950 Admission Diagnosis: Attending: BALDEMAR MIDDLETON Current LOS: 11 Anticipated DC Date: Planned Disposition: Primary Insurance: [facility] MEDICARE SOLUTIONS Discharge Planning Comments: CM MET WITH PATIENT AFTER OBTAINING VERBAL CONSENT. PATIENT STATES WILL NEED IPRH OR SNF AT TIME OF DISCHARGE. SHE HAS 02 AND NEBS AT HOME. SHE SIGNED MAUREEN FOR [facility] IPRH, [place] [facility] IF TOO LOW FUNCTION FOR IPRH, AND [facility] FOR DME AND TRILOGY. CM TO FOLLOW AND ASSIST NEEDED. Monotype Operator: Annie Rivers Appended by Annie Rivers on 07/15/2019 11:06 MANAGER ELECTRICAL: REFERRAL FAXED TO [facility] FOR TRILOGY AND [place] FOR SNF. DCPIA - Discharge Planning Initial Assessment Updated by [id number]: Annie Rivers on 07/15/19 10:25 am * Is the patient Alert and Oriented? Yes * Preadmission Environment Home with Family * ADLs Independent * Other Equipment 02, NEBS * Community resources currently utilized None * Please name any agencies selected above. [facility] * Additional services required to return to the preadmission environment? Yes * Can the patient safely return to the preadmission environment? No * Has this patient been hospitalized within the prior 30 days at any hospital? Yes Coverage Notice Reviewer: [id number] - Annie Rivers Notice Issued Date-Time: 07/15/2019 10:22 Notice Type: Patient Choice Letter Notice Delivered To: Relationship to Patient: Physics And Astronomy Professor Name: Delivery Method: HAND - Hand Delivered Nury Days: Prior Verbal Notification: Recipient Understood Notice: Yes Recipient Signature: Yes Med Rec Note Co-signed by Attending: Coverage Notice Comment: MAUREEN FOR [facility], [facility] IF CANT GO TO [facility]. DME [facility] FOR TRILOGY ETC. Last DP export: 07/15/19 10:11 a Patient Name: VALERIE CRAWFORD Page 06289 at 1335 All edits/amendments must be made on the electronic document DICTATION DATE: 07/15/19 1335 SCRAP HANDLER: DOMINIQUE 07/15/19 1335 RPT#: [id number] DC DATE: STATUS: ADM IN [facility] [address] [place] [address] END OF REPORT
[2019-07-15 13:52] VITALS: BP 131/78
--- NOTE | 2019-07-15 17:20 | OP ---
PATIENT NAME: VALERIE CRAWFORD MEDICAL RECORD: [id number] :[birth year] LOCATION:D. D.2110 ADMISSION DATE:07/04/19 SURGEON: EMMANUEL CANADA MD DATE OF OPERATION: 07/08/2019 PREOPERATIVE DIAGNOSIS: Right epistaxis. POSTOPERATIVE DIAGNOSIS: Right epistaxis. PROCEDURE: Control of the right epistaxis. SURGEON: Emmanuel Canada MD COMMERCIAL DRONE SOFTWARE DEVELOPER: None. BLOOD LOSS: Less than 25 cc. ANESTHESIA: Topical lidocaine. OPERATIVE COURSE: The patient was seen in her room. The entire procedure was performed in the presence of a nurse. She was positioned in a sitting position. I took Q-tips. There were coated in viscous lidocaine and applied them into the right nostril and coated the right anterior nasopharynx and then was able to advance these Q-tips into the posterior nasopharynx. I then sprayed 4% topical liquid cocaine into the posterior nasopharynx. I then advanced a Rapid Rhino that had been well-lubricated. This was advanced all the way, so that its tip was in the posterior nasopharynx. It was then inflated with 9 mL of water. The patient states that it was tight, but the pain was tolerable. There was no further bleeding. I came back and saw the patient about an hour later and still there was no further bleeding. I had the patient open her mouth and shined a light into the back of the mouth and could see no ongoing bleeding going down the oropharynx. TRANSINT:[id number] Voice Confirmation ID: [id number] DOCUMENT ID: [id number] EMMANUEL CANADA MD at 1720 CC: [id number] DICTATION DATE: 07/08/192123 ENVIRONMENTAL SAMPLING TECHNICIAN: 07/08/19 2339 ADM IN [facility] [address] [place] [address]
[2019-07-15 20:00] VITALS: BP 128/70
[2019-07-16] VITALS (7 sets, daily range): BP systolic 121–147; BP diastolic 49–118
[2019-07-16 06:47] LABS: BASOPHILS 0.1 % (0-2); EOSINOPHILS 0 % (0-7); HEMATOCRIT 34.6 % (36.0-48.0); HEMOGLOBIN 10.6 g/dL (12-16); IMMATURE GRANULOCYTES 2.5 % (0-5); LYMPHOCYTES 4.5 % (15-50); MCH 26.5 pg (26.0-34.0); MCHC 30.6 g/dL (31.0-37.0); MCV 86.5 fL (80.0-100.0); MEAN PLATELET VOLUME 10.4 fL (7.4-10.4); MONOCYTES 3.8 % (2-11); NEUTROPHILS 89.1 % (40-80); PLATELET COUNT 253 10x3/uL (130-400); RDW 17.5 % (11.5-14.5); WBC 15.1 10x3/uL (4.8-10.8)
[2019-07-16 06:59] LABS: CALCIUM 8.9 mg/dL (8.5-10.1); CHLORIDE - SERUM 91 mmol/L (98-107); CREATININE - SERUM 0.7 mg/dL (0.6-1.3); POTASSIUM - SERUM 3.5 mmol/L (3.5-5.1); SODIUM 136 mmol/L (136-145); UREA NITROGEN 15 mg/dL (7-18); eGFR NON AFRICAN AMERICAN 88 mL/min (90-120)
[2019-07-16 07:20] LABS: CALC OSMOLALITY 272 mosm/kg (275-300); GLUCOSE 96 mg/dL (74-106)
[2019-07-16 07:21] LABS: CARBON DIOXIDE 43.4 mmol/L (21.0-32.0)
--- NOTE | 2019-07-16 12:05 | MORECARE ---
CASE MANAGEMENT DISCHARGE SUMMARY PATIENT: VALERIE CRAWFORD UNIT: [id number] ADM DATE: 07/04/19 AGE: 68 : 49 SEX: F ROOM/BED: D.2111 AUTHOR: NATIVIDAD,DOC PHYSICIAN: REFERRING PHYSICIAN: BALDEMAR MIDDLETON MD DATE OF SERVICE: 07/16/19 Discharge Plan Patient Name: VALERIE CRAWFORD Facility: [facility]:[place] : 1950 Planned Disposition: Anticipated Discharge Date: Discharge Date: Expected LOS: Initial Reviewer: [id number] Initial Review Date: 07/15/2019 Generated: 07/16/19 1:05 pm Comments DCP- Discharge Planning Updated by [id number]: Annie Rivers on 07/15/19 10:[address] Patient Name: VALERIE CRAWFORD Admission Status: ER Accout number: [id number] Admission Date: 07-04-2019 : 1950 Admission Diagnosis: Attending: BALDEMAR MIDDLETON Current LOS: 11 Anticipated DC Date: Planned Disposition: Primary Insurance: [facility] MEDICARE SOLUTIONS Discharge Planning Comments: CM MET WITH PATIENT AFTER OBTAINING VERBAL CONSENT. PATIENT STATES WILL NEED IPRH OR SNF AT TIME OF DISCHARGE. SHE HAS 02 AND NEBS AT HOME. SHE SIGNED MAUREEN FOR [facility] IPRH, [place] [facility] IF TOO LOW FUNCTION FOR IPRH, AND [facility] FOR DME AND TRILOGY. CM TO FOLLOW AND ASSIST NEEDED. Software Quality Engineer: Annie Rivers Appended by Annie Rivers on 07/15/2019 11:06 SALES AND MARKETING ADMINISTRATOR: REFERRAL FAXED TO [facility] FOR TRILOGY AND [place] FOR SNF. DCPIA - Discharge Planning Initial Assessment Updated by [id number]: Annie Rivers on 07/15/19 10:25 am * Is the patient Alert and Oriented? Yes * Preadmission Environment Home with Family * ADLs Independent * Other Equipment 02, NEBS * Community resources currently utilized None * Please name any agencies selected above. [facility] * Additional services required to return to the preadmission environment? Yes * Can the patient safely return to the preadmission environment? No * Has this patient been hospitalized within the prior 30 days at any hospital? Yes External Providers External Provider: OTHER-OTHER Next Contact Date: Service Request Date: Service Type: Resolution: Reviewer: Comments: Coverage Notice Reviewer: [id number] - Annie Rivers Notice Issued Date-Time: 07/15/2019 10:22 Notice Type: Patient Choice Letter Notice Delivered To: Relationship to Patient: Electric Car Operator Name: Delivery Method: HAND - Hand Delivered Nury Days: Prior Verbal Notification: Recipient Understood Notice: Yes Recipient Signature: Yes Med Rec Note Co-signed by Attending: Coverage Notice Comment: MAUREEN FOR [facility], [facility] IF CANT GO TO [facility]. G[facility]ALDINE [facility] FOR TRILOGY ETC. Last DP export: 07/15/19 12:35 p Patient Name: VALERIE CRAWFORD Page 54627 at 1205 All edits/amendments must be made on the electronic document DICTATION DATE: 07/16/19 1205 BOILER TENDER: DOMINIQUE 07/16/19 1205 RPT#: [id number] DC DATE: STATUS: ADM IN [facility] [address] [place] [address] END OF REPORT
--- NOTE | 2019-07-16 12:13 | MORECARE ---
CASE MANAGEMENT DISCHARGE SUMMARY PATIENT: VALERIE CRAWFORD UNIT: [id number] ADM DATE: 07/04/19 AGE: 68 : [birth year] SEX: F ROOM/BED: D.2111 AUTHOR: BROOKS HENSON PHYSICIAN: REFERRING PHYSICIAN: BALDEMAR MIDDLETON MD DATE OF SERVICE: 07/16/19 Discharge Plan Patient Name: VALERIE CRAWFORD Facility: [facility]:[place] : 1950 Planned Disposition: Anticipated Discharge Date: Discharge Date: Expected LOS: Initial Reviewer: [id number] Initial Review Date: 07/15/2019 Generated: 07/16/19 1:12 pm Comments DCP- Discharge Planning Updated by [id number]: Annie Rivers on 07/16/19 11:[address] Patient Name: VALERIE CRAWFORD Admission Status: ER Accout number: [id number] Admission Date: 07-04-2019 : 1950 Admission Diagnosis: Attending: BALDEMAR MIDDLETON Current LOS: 12 Anticipated DC Date: Planned Disposition: Primary Insurance: [facility] MEDICARE SOLUTIONS Discharge Planning Comments: CM FAXED DOCUMENTS FOR TRILOGY TO [facility] IN [facility] AFTER FINDING OUT THAT IS THE ONE SHE USES. WAITING CALL BACK FROM [place] AT [facility]. FAUSTINA PHELPS WORKING ON ACCEPTING PATIENT TO [facility]. CM TO FOLLOW AND ASSIST NEEDED. Clinical Research Associate: Annie Rivers DCP- Discharge Planning Updated by [email or web address]: Annie Rivers on 07/15/19 10:[address] Patient Name: VALERIE CRAWFORD Admission Status: ER Accout number: [id number] Admission Date: 07-04-2019 : 1950 Admission Diagnosis: Attending: BALDEMAR MIDDLETON Current LOS: 11 Anticipated DC Date: Planned Disposition: Primary Insurance: [facility] MEDICARE SOLUTIONS Discharge Planning Comments: CM MET WITH PATIENT AFTER OBTAINING VERBAL CONSENT. PATIENT STATES WILL NEED IPRH OR SNF AT TIME OF DISCHARGE. SHE HAS 02 AND NEBS AT HOME. SHE SIGNED MAUREEN FOR [facility] IPR[facility], [place] [facility] IF TOO LOW FUNCTION FOR IPRH, AND [facility] FOR DME AND TRILOGY. CM TO FOLLOW AND ASSIST NEEDED. Clinical Research Associate: Annie Rivers Appended by Annie Rivers on 07/15/2019 11:06 BENZENE WASHER: [facility] [place] [facility]. DCPIA - Discharge Planning Initial Assessment Updated by [id number]: Annie Rivers on 07/15/19 10:25 am * Is the patient Alert and Oriented? Yes * Preadmission Environment Home with Family * ADLs Independent * Other Equipment 02, NEBS * Community resources currently utilized None * Please name any agencies selected above. [facility] * Additional services required to return to the preadmission environment? Yes * Can the patient safely return to the preadmission environment? No * Has this patient been hospitalized within the prior 30 days at any hospital? Yes Coverage Notice Reviewer: [id number] - Annie Rivers Notice Issued Date-Time: 07/15/2019 10:22 Notice Type: Patient Choice Letter Notice Delivered To: Relationship to Patient: Property Worker Name: Delivery Method: HAND - Hand Delivered Nury Days: Prior Verbal Notification: Recipient Understood Notice: Yes Recipient Signature: Yes Med Rec Note Co-signed by Attending: Coverage Notice Comment: MAUREEN FOR [facility], [facility] IF [facility]. GERALDINE [facility] FOR TRILOGY ETC. Last DP export: 07/16/19 11:05 a Patient Name: VALERIE CRAWFORD Page 93723 at 1213 All edits/amendments must be made on the electronic document DICTATION DATE: 07/16/19 1212 COMMERCIAL INTERN: DOMINIQUE 07/16/19 1212 RPT#: [id number] DC DATE: STATUS: ADM IN [facility] [address] [place] [address] END OF REPORT
[2019-07-17] VITALS (17 sets, daily range): BP systolic 80–169; BP diastolic 47–121
[2019-07-17 09:29] LABS: HEMOGLOBIN 11.4 g/dL (12-16); MCH 26.8 pg (26.0-34.0); MCHC 30.8 g/dL (31.0-37.0); MCV 86.9 fL (80.0-100.0); MEAN PLATELET VOLUME 10.6 fL (7.4-10.4); PLATELET COUNT 229 10x3/uL (130-400); RBC 4.26 10x6/uL (4.00-5.40); WBC 18.1 10x3/uL (4.8-10.8)
[2019-07-17 09:40] LABS: ANION GAP 10.9 mmol/L (8-16); CALCIUM 9.1 mg/dL (8.5-10.1); CARBON DIOXIDE 36.2 mmol/L (21.0-32.0); CREATININE - SERUM 1.2 mg/dL (0.6-1.3); MAGNESIUM - SERUM 1.4 mg/dL (1.8-2.4); POTASSIUM - SERUM 4.1 mmol/L (3.5-5.1)
[2019-07-17 09:56] LABS: EOSINOPHILS 1 % (0-7); LYMPHOCYTES 4 % (15-50); NEUTROPHILS 86 % (40-80); PLATELET ESTIMATE NORMAL
[2019-07-17 18:19] LABS: BILIRUBIN NEGATIVE (NEGATIVE); GLUCOSE NEGATIVE (NEGATIVE); KETONE NEGATIVE (NEGATIVE); NITRITE NEGATIVE (NEGATIVE); UROBILINOGEN NORMAL (NORMAL)
[2019-07-17 18:20] LABS: BACTERIA MANY /hpf (NEGATIVE); RED CELLS - URINE 0-5 /hpf (0-5); WHITE CELLS - URINE 0-5 /hpf (NEGATIVE)
[2019-07-17 18:21] LABS: GRANULAR CAST 0-5 /lpf (NONE SEEN); HYALINE CAST 0-5 /lpf (NONE SEEN)
[2019-07-18] VITALS (24 sets, daily range): BP systolic 91–145; BP diastolic 46–94
[2019-07-18 06:11] LABS: BASOPHILS 0.1 % (0-2); EOSINOPHILS 0 % (0-7); HEMATOCRIT 36.6 % (36.0-48.0); HEMOGLOBIN 11.3 g/dL (12-16); IMMATURE GRANULOCYTES 1.2 % (0-5); MCH 26.8 pg (26.0-34.0); MCHC 30.9 g/dL (31.0-37.0); MCV 86.7 fL (80.0-100.0); NEUTROPHILS 95.7 % (40-80); RBC 4.22 10x6/uL (4.00-5.40); RDW 18.1 % (11.5-14.5); WBC 14.6 10x3/uL (4.8-10.8)
[2019-07-18 06:15] LABS: PLATELET COUNT 171 10x3/uL (130-400)
[2019-07-18 06:37] LABS: ANION GAP 13.5 mmol/L (8-16); CALCIUM 9.1 mg/dL (8.5-10.1); CARBON DIOXIDE 35.3 mmol/L (21.0-32.0); CREATININE - SERUM 1.1 mg/dL (0.6-1.3); MAGNESIUM - SERUM 2.2 mg/dL (1.8-2.4); POTASSIUM - SERUM 3.8 mmol/L (3.5-5.1)
[2019-07-19] VITALS (23 sets, daily range): BP systolic 78–154; BP diastolic 53–133
[2019-07-19 06:56] LABS: ANION GAP 8.5 mmol/L (8-16); CALCIUM 8.7 mg/dL (8.5-10.1); CARBON DIOXIDE 39.3 mmol/L (21.0-32.0); POTASSIUM - SERUM 3.8 mmol/L (3.5-5.1)
[2019-07-19 06:58] LABS: CREATININE - SERUM 1.8 mg/dL (0.6-1.3)
[2019-07-19 07:37] LABS: MAGNESIUM - SERUM 2.1 mg/dL (1.8-2.4); PHOSPHOROUS 3.5 mg/dL (2.5-4.9)
[2019-07-19 07:40] LABS: BASOPHILS 0.2 % (0-2); EOSINOPHILS 0.1 % (0-7); HEMATOCRIT 35.2 % (36.0-48.0); HEMOGLOBIN 10.9 g/dL (12-16); IMMATURE GRANULOCYTES 1.5 % (0-5); MCH 26.7 pg (26.0-34.0); MCV 86.1 fL (80.0-100.0); MONOCYTES 3.4 % (2-11); NEUTROPHILS 91.8 % (40-80); RBC 4.09 10x6/uL (4.00-5.40); RDW 17.8 % (11.5-14.5)
[2019-07-19 07:55] LABS: PLATELET COUNT 107 10x3/uL (130-400); WBC 19.2 10x3/uL (4.8-10.8)
[2019-07-20] VITALS (104 sets, daily range): BP systolic 51–188; BP diastolic 24–117
[2019-07-20 03:17] LABS: HEMATOCRIT 31.3 % (36.0-48.0); HEMOGLOBIN 9.2 g/dL (12-16); MCH 26.7 pg (26.0-34.0); MCHC 29.4 g/dL (31.0-37.0); PLATELET COUNT 61 10x3/uL (130-400); RBC 3.44 10x6/uL (4.00-5.40); RDW 17.5 % (11.5-14.5); WBC 29.9 10x3/uL (4.8-10.8)
[2019-07-20 03:22] LABS: INR 2.25 (0.85-1.17); PROTIME 24.5 SECONDS (11.6-15.0)
[2019-07-20 03:23] LABS: APTT 61.5 SECONDS (22.8-39.4); D-DIMER-QUANTITATIVE 2.68 ug/mLFEU (0.20-0.54)
[2019-07-20 03:30] LABS: CALCIUM 7.4 mg/dL (8.5-10.1)
[2019-07-20 03:34] LABS: ANION GAP 27.5 mmol/L (8-16); CARBON DIOXIDE 23.9 mmol/L (21.0-32.0); POTASSIUM - SERUM 5.4 mmol/L (3.5-5.1)
[2019-07-20 04:03] LABS: LYMPHOCYTES 16 % (15-50); MONOCYTES 3 % (2-11); NEUTROPHILS 63 % (40-80)
[2019-07-20 04:04] LABS: PLATELET ESTIMATE DECREASED
[2019-07-20 22:27] LABS: HEMATOCRIT 19.8 % (36.0-48.0); HEMOGLOBIN 5.1 g/dL (12-16); RBC 1.91 10x6/uL (4.00-5.40); WBC 23.5 10x3/uL (4.8-10.8)
[2019-07-20 22:28] LABS: MCH 26.7 pg (26.0-34.0); MCHC 25.8 g/dL (31.0-37.0); MCV 103.7 fL (80.0-100.0); PLATELET COUNT 18 10x3/uL (130-400); RDW 18.3 % (11.5-14.5)
[2019-07-20 22:43] LABS: APTT 115.3 SECONDS (22.8-39.4); INR 8.75 (0.85-1.17); PROTIME 69.7 SECONDS (11.6-15.0)
[2019-07-20 22:46] LABS: BASOPHILS 1 % (0-2); EOSINOPHILS 3 % (0-7); LYMPHOCYTES 10 % (15-50); MONOCYTES 1 % (2-11); NEUTROPHILS 79 % (40-80); PLATELET ESTIMATE DECREASED
[2019-07-20 22:48] LABS: ALBUMIN 0.7 g/dL (3.4-5.0); ALKALINE PHOSPHATASE 312 U/L (30-120); BILIRUBIN - TOTAL 1.01 mg/dL (0.2-1.3); CHLORIDE - SERUM 92 mmol/L (98-107); CREATININE - SERUM 3.5 mg/dL (0.6-1.3); PROTEIN - SERUM 2.9 g/dL (6.4-8.2); SODIUM 147 mmol/L (136-145); UREA NITROGEN 59 mg/dL (7-18); eGFR NON AFRICAN AMERICAN 14 mL/min (90-120)
[2019-07-20 22:51] LABS: CALC OSMOLALITY 318 mosm/kg (275-300); GLUCOSE 284 mg/dL (74-106)
[2019-07-20 22:52] LABS: CARBON DIOXIDE 11.5 mmol/L (21.0-32.0)
[2019-07-20 22:54] LABS: ALT (SGPT) 2912 U/L (10-68)
[2019-07-20 22:55] LABS: CALCIUM 6.3 mg/dL (8.5-10.1); POTASSIUM - SERUM 8.1 mmol/L (3.5-5.1)
[2019-07-21] VITALS (24 sets, daily range): BP systolic 57–157; BP diastolic 25–104
[2019-07-21 05:12] LABS: BASOPHILS 0.5 % (0-2); EOSINOPHILS 0.2 % (0-7); IMMATURE GRANULOCYTES 9.6 % (0-5); LYMPHOCYTES 15.1 % (15-50); MCH 28.2 pg (26.0-34.0); MCHC 27.8 g/dL (31.0-37.0); MONOCYTES 0.6 % (2-11); RDW 17.7 % (11.5-14.5); WBC 19.9 10x3/uL (4.8-10.8)
[2019-07-21 05:28] LABS: RBC 2.62 10x6/uL (4.00-5.40)
[2019-07-21 05:29] LABS: APTT 86.5 SECONDS (22.8-39.4); HEMATOCRIT 26.6 % (36.0-48.0); HEMOGLOBIN 7.4 g/dL (12-16); INR 4.6 (0.85-1.17); MCV 101.5 fL (80.0-100.0); PLATELET COUNT 16 10x3/uL (130-400); PROTIME 42.5 SECONDS (11.6-15.0)
[2019-07-21 05:59] LABS: BILIRUBIN - DIRECT 0.62 mg/dL (0.00-0.30); BILIRUBIN - INDIRECT 0.31 mg/dL (0.00-1.00); BILIRUBIN - TOTAL 0.93 mg/dL (0.2-1.3); CREATININE - SERUM 3.3 mg/dL (0.6-1.3); MAGNESIUM - SERUM 2.6 mg/dL (1.8-2.4); PROTEIN - SERUM 3.1 g/dL (6.4-8.2)
[2019-07-21 07:12] LABS: ANION GAP 59.2 mmol/L (8-16); POTASSIUM - SERUM 9.1 mmol/L (3.5-5.1)
[2019-07-21 07:13] LABS: CARBON DIOXIDE 6.9 mmol/L (21.0-32.0)
--- NOTE | 2019-07-22 20:28 | MORECARE ---
CASE MANAGEMENT DISCHARGE SUMMARY PATIENT: VALERIE CRAWFORD UNIT: [id number] ADM DATE: 07/04/19 AGE: 68 : [birth year] SEX: F ROOM/BED: D.2304 AUTHOR: NATIVIDAD,DOC PHYSICIAN: REFERRING PHYSICIAN: BALDEMAR MIDDLETON MD DATE OF SERVICE: 07/22/19 Discharge Plan Patient Name: VALERIE CRAWFORD Facility: [facility]:[place] : 1950 Planned Disposition: Anticipated Discharge Date: Discharge Date: 07/21/2019 Expected LOS: Initial Reviewer: [email or web address] Initial Review Date: 07/15/2019 Generated: 07/22/19 9:28 pm DCP- Discharge Planning Updated by [email or web address]: Annie Rivers on 07/16/19 11:[address] Patient Name: VALERIE CRAWFORD Admission Status: ER Accout number: [id number] Admission Date: 07-04-2019 : 1950 Admission Diagnosis: Attending: BALDEMAR MIDDLETON Current LOS: 12 Anticipated DC Date: Planned Disposition: Primary Insurance: [facility] MEDICARE SOLUTIONS Discharge Planning Comments: CM FAXED DOCUMENTS FOR TRILOGY TO [facility] IN [facility] AFTER FINDING OUT THAT IS THE ONE SHE USES. WAITING CALL BACK FROM [place] AT [facility]. FAUSTINA PHELPS WORKING ON ACCEPTING PATIENT TO [facility]. CM TO FOLLOW AND ASSIST NEEDED. Weight Loss Counselor: Annie Rivers DCP- Discharge Planning Updated by [email or web address]: Annie Rivers on 07/15/19 10:[address] Patient Name: VALERIE CRAWFORD Admission Status: ER Accout number: [id number] Admission Date: 07-04-2019 : 1950 Admission Diagnosis: Attending: BALDEMAR MIDDLETON Current LOS: 11 Anticipated DC Date: Planned Disposition: Primary Insurance: [facility] MEDICARE SOLUTIONS Discharge Planning Comments: CM MET WITH PATIENT AFTER OBTAINING VERBAL CONSENT. PATIENT STATES WILL NEED IPRH OR SNF AT TIME OF DISCHARGE. SHE HAS 02 AND NEBS AT HOME. SHE SIGNED MAUREEN FOR [facility] IPR[facility], [place] [facility] IF TOO LOW FUNCTION FOR IPRH, AND [facility] FOR DME AND TRILOGY. CM TO FOLLOW AND ASSIST NEEDED. Weight Loss Counselor: Annie Rivers Appended by Annie Rivers on 07/15/2019 11:06 VOLUNTEER RECRUITER: [facility] [place] FOR SNF. DCPIA - Discharge Planning Initial Assessment Updated by [id number]: Annie Rivers on 07/15/19 10:25 am * Is the patient Alert and Oriented? Yes * Preadmission Environment Home with Family * ADLs Independent * Other Equipment 02, NEBS * Community resources currently utilized None * Please name any agencies selected above. [facility] * Additional services required to return to the preadmission environment? Yes * Can the patient safely return to the preadmission environment? No * Has this patient been hospitalized within the prior 30 days at any hospital? Yes Coverage Notice Reviewer: [id number] - Annie Rivers Notice Issued Date-Time: 07/15/2019 10:22 Notice Type: Patient Choice Letter Notice Delivered To: Relationship to Patient: Primary Class Teacher Name: Delivery Method: HAND - Hand Delivered Nury Days: Prior Verbal Notification: Recipient Understood Notice: Yes Recipient Signature: Yes Med Rec Note Co-signed by Attending: Coverage Notice Comment: MAUREEN FOR [facility], [facility] IF CANT GO TO [facility]ED [facility]. GERALDINE GAITAN FOR TRILOGY ETC. Last DP export: 07/16/19 11:13 a Patient Name: VALERIE CRAWFORD Page 32102 at 2027 All edits/amendments must be made on the electronic document DICTATION DATE: 07/22/192027 LEAD ENGINEER: DOMINIQUE 07/22/192027 RPT#: [id number] DC DATE:07/21/19 STATUS: DIS IN [facility] [address] [place] [address] END OF REPORT
--- NOTE | 2019-07-23 17:59 | OP ---
PATIENT NAME: VALERIE CRAWFORD MEDICAL RECORD: [id number] :[birth year] LOCATION:.[facility] D.2304 ADMISSION DATE:07/04/19 SURGEON: CRYSTAL CANADA MD DATE OF OPERATION: 07/20/2019 PREOPERATIVE DIAGNOSES: Hypotension, on pressors and need of continuous hemodynamic monitoring. POSTOPERATIVE DIAGNOSES: Hypotension, on pressors and need of continuous hemodynamic monitoring. PROCEDURES: Placement of left common femoral artery arterial line for continuous hemodynamic monitoring. SURGEON: Crystal Canada MD ARGON TESTER: None. BLOOD LOSS: Minimal. A consent form was signed. There had been prior attempts by another physician to try to place an arterial line. The entire procedure was performed in the presence of a nurse. OPERATIVE COURSE: The patient was seen in her ICU room. The patient was being mechanically ventilated. She is on multiple pressors. The right wrist was supinated. An Marcus's test revealed adequate collateral flow via the ulnar artery. The volar surface of the right wrist and right forearm was interrogated with the ultrasound. The area was then sterilely prepped and draped. Local anesthetic was used to infiltrate the skin and subcutaneous tissues overlying the radial artery. I was unable to cannulate the radial artery via retrograde stick. This approach was then abandoned. 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 I am really not going to be able to place an arterial line in either upper extremity due to the fact that her arteries are really "clamped down" from the vasopressor support. The left groin was sterilely prepped and draped. A local anesthetic was used to infiltrate the skin and subcutaneous tissues of the left groin. The left common femoral artery was percutaneously accessed in a retrograde fashion. A guidewire passed easily. A small skin samantha was accomplished. A long Angiocath type catheter was inserted over the guidewire. The guidewire was then removed. Pulsatile blood was identified. This was attached to a flush transducer tubing. The arterial line was then sutured in place times 3 with silks. There was an excellent waveform on the monitor. The patient had no immediate post-procedure complications. The site was then sterilely dressed. TRANSINT:[id number] Voice Confirmation ID: [id number] DOCUMENT ID: [id number] OPERATIVE REPORT [id number] CRAWFORD,CRYSTAL BEARD MD at 1759 CC: [id number] DICTATION DATE: 07/21/19 1025 PROGRAMMING COORDINATOR: 07/21/19 1232 DIS IN 07/21/19 [place] [id number] [place] [address]
== END 2019-07-21 14:23 | DRG 208 ==
LOC: D.ER 00:56 → D.M2 02:25 → OBSVTIME 02:25 → D.M2 02:25 → D.ICU 17:00
PROVIDERS: Emergency Medicine; Family Medicine; Internal Medicine Cardiovascular Disease; Internal Medicine Hematology & Oncology; Internal Medicine Pulmonary Disease; ADMIT Internal Medicine Nephrology; ATTEND Internal Medicine Nephrology
PROC: 5A09457 Assistance with Respiratory Ventilation, 24-96 Consecutive Hours, Continuous Positive Airway Pressure (ICD-10-PCS; 2019-07-04)
PROC: B2111ZZ Fluoroscopy of Multiple Coronary Arteries using Low Osmolar Contrast (ICD-10-PCS; 2019-07-05)
PROC: B2151ZZ Fluoroscopy of Left Heart using Low Osmolar Contrast (ICD-10-PCS; 2019-07-05)
PROC: 4A023N7 Measurement of Cardiac Sampling and Pressure, Left Heart, Percutaneous Approach (ICD-10-PCS; 2019-07-05)
PROC: 05HY33Z Insertion of Infusion Device into Upper Vein, Percutaneous Approach (ICD-10-PCS; 2019-07-06)
PROC: 093K7ZZ Control Bleeding in Nasal Mucosa and Soft Tissue, Via Natural or Artificial Opening (ICD-10-PCS; 2019-07-08)
PROC: 5A1945Z Respiratory Ventilation, 24-96 Consecutive Hours (ICD-10-PCS; principal; 2019-07-20)
PROC: 0BH17EZ Insertion of Endotracheal Airway into Trachea, Via Natural or Artificial Opening (ICD-10-PCS; 2019-07-20)
PROC: 02HV33Z Insertion of Infusion Device into Superior Vena Cava, Percutaneous Approach (ICD-10-PCS; 2019-07-20)
PROC: B548ZZA Ultrasonography of Superior Vena Cava, Guidance (ICD-10-PCS; 2019-07-20)
PROC: 04HY33Z Insertion of Infusion Device into Lower Artery, Percutaneous Approach (ICD-10-PCS; 2019-07-20)
DX: J15.212 Pneumonia due to Methicillin resistant Staphylococcus aureus (principal); J96.21 Acute and chronic respiratory failure with hypoxia; I21.4 Non-ST elevation (NSTEMI) myocardial infarction; R53.2 Functional quadriplegia; G92 Toxic encephalopathy; A41.9 Sepsis, unspecified organism; N17.0 Acute kidney failure with tubular necrosis; D65 Disseminated intravascular coagulation [defibrination syndrome]; R65.21 Severe sepsis with septic shock; J44.0 Chronic obstructive pulmonary disease with (acute) lower respiratory infection; I50.30 Unspecified diastolic (congestive) heart failure; R04.2 Hemoptysis; I25.110 Atherosclerotic heart disease of native coronary artery with unstable angina pectoris; J44.1 Chronic obstructive pulmonary disease with (acute) exacerbation; J98.11 Atelectasis; Z68.41 Body mass index [BMI] 40.0-44.9, adult; D64.9 Anemia, unspecified; R04.0 Epistaxis; K21.9 Gastro-esophageal reflux disease without esophagitis; J20.9 Acute bronchitis, unspecified; R73.9 Hyperglycemia, unspecified; E66.01 Morbid (severe) obesity due to excess calories; E87.5 Hyperkalemia